=== PATIENT | female | born 1975 | race African-American/Black ===

== ENCOUNTER 2018-03-26 08:58 | Emergency (ER) | payer OTHER ==
[2018-03-26 09:16] VITALS: BMI 35.1
[2018-03-26] MEDS ORDERED: ACETAMINOPHEN 325 MG TABLET (FP) ONE (09:52)
[2018-03-26] MEDS ORDERED: ACETAMINOPHEN 325 MG TABLET (FP) PO ONE (10:30)
[2018-03-26 12:45] VITALS: BP 108/68; PULSE 86; TEMP 97.9
== END 2018-03-26 13:20 | disposition home or self-care (01) ==
LOC: JER 08:58
DX: O26.892 Other specified pregnancy related conditions, second trimester (principal); Z3A.26 26 weeks gestation of pregnancy; R10.2 Pelvic and perineal pain
CPT/HCPCS: 76801-TC; 99281-25

== ENCOUNTER 2023-06-03 10:08 | Day surgery (SDC) | payer OTHER ==
[2023-05-30 12:05] VITALS: BMI 30.6
[2023-06-03 12:22] VITALS: RESP 16; TEMP 98
[2023-06-03 12:34] VITALS: BP 140/95; PULSE 78
== END 2023-06-03 12:30 | disposition home or self-care (01) ==
LOC: FASU-ENDO 10:08
PROVIDERS: ATTEND Internal Medicine Gastroenterology
PROC: 0DJD8ZZ Inspection of Lower Intestinal Tract, Via Natural or Artificial Opening Endoscopic (ICD-10-PCS; principal; 2023-06-03 11:27)
DX: Z12.11 Encounter for screening for malignant neoplasm of colon (principal)
CPT/HCPCS: 81025